=== PATIENT | female | born 1940 | race Caucasian/White ===

== ENCOUNTER → 2017-01-14 | Outpatient (CLI) | payer MEDICARE ==
--- NOTE | 2017-01-14 13:28 | XR ---
Lumbar spine HISTORY: Low back pain 3 views of the lumbar spine, no comparisons There is a mild spinal curvature. Multilevel spondylosis is present. Sclerosis present in the posteri or elements. Loss of disc height present at the intervertebral levels. There is anterolisthesis grade 1 L4-5. Vacuum phenomenon present at the intervertebral levels compatible with vacuum disc phenomeno n. Atherosclerotic vascular calcifications are present. Lumbar vertebral bodies show preserved height . Bone mineralization is reduced. Surgical clips in the right upper quadrant. IMPRESSION: Degenerative disc disease, facet arthropathy, osteopenia, scoliosis.
== END | disposition home or self-care (01) ==
LOC: RADXRMAIN 11:43
PROVIDERS: ATTEND Family Medicine
DX: M51.36 Other intervertebral disc degeneration, lumbar region (principal); M12.88 Other specific arthropathies, not elsewhere classified, other specified site; M85.80 Other specified disorders of bone density and structure, unspecified site; M41.9 Scoliosis, unspecified
CPT/HCPCS: 72100

== ENCOUNTER 2017-03-25 06:51 | Day surgery (SDC) | payer MEDICARE ==
[2017-03-24 08:41] VITALS: BMI 37.1
[~2017-03-25 06:51] MED LIST: LACTATED RINGERS 1,000 ML IV SCH
[2017-03-25 07:15] VITALS: TEMP 98
[2017-03-25 07:18] LABS: Glucose,Whole Blood 121 mg/dL (75-99)
[2017-03-25] MEDS ORDERED: PROPOFOL 10 MG/ML 20 ML VIAL IV ONE (07:45)
--- NOTE | 2017-03-25 08:25 | P.OP ---
Date of Procedure: 03/25/17 Preoperative Diagnosis: Prior cecal polyp underwent a colon resection Postoperative Diagnosis: Extensive diverticuli, internal hemorrhoids Procedure(s) Performed: Colonoscopy Implants: Anesthesia: MAC Surgeon: Karrie Hopkins Estimated Blood Loss (ml): 0 IV fluids (ml): 500 Pathology: none sent Condition: stable Disposition: PACU Indications for Procedure: Prior colon resection for cecal polyp Operative Findings: Extensive diverticuli, internal hemorrhoids Description of Procedure: The patient was taken to the endoscopy suite and following being placed in the left lateral decubitus position sedation was administered. A rectal examination was performed. Patient was noted to have good sphincter tone no masses. Colonoscope was passed through the anus into the rectum. Was passed into the sigmoid colon was noted to be extensive diverticuli. Was able to be passed to the splenic flexure through the transverse colon to the area of the anastomosis. No evidence of any recurrence was identified at the anastomosis. She had a prior cecal adenomatous polyp. No polypoid lesions of concern were identified. Proximally 6 minutes were taken to withdraw the scope from the area of the anastomosis to the rectum. No mucosal lesions of concern were identified. No mucosal lesions of concern were identified in the transverse colon or the left colon. Extensive diverticuli were noted in the sigmoid colon. The scope was brought down into the rectum where it was retroflexed. Internal hemorrhoids were identified. Impression/plan: 1. No polypoid lesions of concern 2. Internal hemorrhoids 3. Extensive diverticuli Plan: 1. Conservative management 2. Repeat scope in 5 years
--- NOTE | 2017-03-25 08:27 | P.DS ---
Providers Attending physician: Karrie Hopkins Primary care physician: Natacha Giraldo Plan - Discharge Summary New Discharge Prescriptions: No Action Folic Acid 0.4 mg PO HS Insulin Glargine [Lantus] 30 unit SQ HS Losartan [Cozaar] 50 mg PO QAM Gabapentin [Neurontin] 400 mg PO 0800,1200 Montelukast [Singulair] 10 mg PO DAILY Magnesium Oxide [Mag-Ox] 500 mg PO HS Fluticasone Propionate [Flonase] 2 spray EA NOSTRIL HS Ascorbic Acid [Vitamin C] 500 mg PO BID Ubidecarenone [Coq-10] 400 mg PO TID Acetaminophen [Tylenol] 325 mg PO Q4H PRN PRN Reason: Pain Cilostazol [Cilostazol] 100 mg PO BID Cranberry Conc/C/Bacill Coag [Cranberry Tablet] 3 tab PO QAM Cyanocobalamin [Vitamin B-12] 500 mcg PO QAM Vitamin E (Dl,Tocopheryl Acet) [Vitamin E] 400 mg PO DAILY Cetirizine HCl [Zyrtec] 10 mg PO DAILY L-Carnitine 500 mg PO TID Gabapentin [Neurontin] 800 mg PO W/SUPPER Super Enzyme 1 cap PO DAILY glipiZIDE [Glucotrol] 5 mg PO DAILY PRN PRN Reason: Blood Sugar - High Discharge Medication List Ascorbic Acid [Vitamin C] 500 mg PO BID 01/21/14 [History] Fluticasone Propionate [Flonase] 2 spray EA NOSTRIL HS 01/21/14 [History] Folic Acid 0.4 mg PO HS 01/21/14 [History] Gabapentin [Neurontin] 400 mg PO 0800,1200 01/21/14 [History] Insulin Glargine [Lantus] 30 unit SQ HS 01/21/14 [History] Losartan [Cozaar] 50 mg PO QAM 01/21/14 [History] Magnesium Oxide [Mag-Ox] 500 mg PO HS 01/21/14 [History] Montelukast [Singulair] 10 mg PO DAILY 01/21/14 [History] Ubidecarenone [Coq-10] 400 mg PO TID 01/21/14 [History] Acetaminophen [Tylenol] 325 mg PO Q4H PRN 03/24/15 [History] Cilostazol [Cilostazol] 100 mg PO BID 03/24/15 [History] Cranberry Conc/C/Bacill Coag [Cranberry Tablet] 3 tab PO QAM 03/24/15 [History] Cyanocobalamin [Vitamin B-12] 500 mcg PO QAM 03/24/15 [History] Cetirizine HCl [Zyrtec] 10 mg PO DAILY 01/12/16 [History] Vitamin E (Dl,Tocopheryl Acet) [Vitamin E] 400 mg PO DAILY 01/12/16 [History] L-Carnitine 500 mg PO TID 02/15/16 [History] Gabapentin [Neurontin] 800 mg PO W/SUPPER 03/24/17 [History] Super Enzyme 1 cap PO DAILY 03/24/17 [History] glipiZIDE [Glucotrol] 5 mg PO DAILY PRN 03/24/17 [History] Follow up Appointment(s)/Referral(s): Karrie Hopkins MD [STAFF PHYSICIAN] - As Needed Activity/Diet/Wound Care/Special Instructions: Diverticular diet Do not drive today Follow-up with Dr. Walker in 1 year unless patient has any concerns Discharge Disposition: HOME SELF-CARE
[2017-03-25 08:54] VITALS: BP 118/56; PULSE 59; RESP 20
== END 2017-03-25 09:07 | disposition home or self-care (01) ==
LOC: ORWHC2ENDO 06:51
PROVIDERS: ATTEND Surgery
DX: Z12.11 Encounter for screening for malignant neoplasm of colon (principal); Z86.010 Personal history of colon polyps; Z90.49 Acquired absence of other specified parts of digestive tract; K64.8 Other hemorrhoids; K57.30 Diverticulosis of large intestine without perforation or abscess without bleeding; I10 Essential (primary) hypertension; J45.909 Unspecified asthma, uncomplicated; M19.90 Unspecified osteoarthritis, unspecified site; N19 Unspecified kidney failure; E11.9 Type 2 diabetes mellitus without complications; Z79.4 Long term (current) use of insulin; Z79.84 Long term (current) use of oral hypoglycemic drugs; Z79.02 Long term (current) use of antithrombotics/antiplatelets; Z79.51 Long term (current) use of inhaled steroids; Z79.899 Other long term (current) drug therapy; Z88.1 Allergy status to other antibiotic agents
CPT/HCPCS: J2704; G0105

== ENCOUNTER 2018-04-03 12:21 | Emergency (ER) | payer MEDICARE ==
[2018-04-03 12:27] VITALS: RESP 18
--- NOTE | 2018-04-03 14:13 | ED ---
General Adult HPI - General Chief complaint: Abdominal Pain Stated complaint: Flank/Back Pain Time Seen by Provider: 04/03/18 12:42 Source: patient, RN notes reviewed Mode of arrival: wheelchair Limitations: no limitations - History of Present Illness Initial comments: 77-year-old female presents to the emergency department for a chief complaint of left lower flank pain 11 days. Patient states it comes and goes throughout the day. Patient states Tylenol and a heating pad takes away the pain within 30 minutes. Patient denies any abdominal pain. Patient denies any nausea or vomiting. No fevers or chills at home. Patient states make moving around may make it worse but she is not sure. Patient is scheduled for a knee replacement of the left kidney in one month and has been favoring the right leg considerably. She has been limping on the left leg and wonders if this could be causing the pain in her back. No history of kidney stones. patient denies any pain in the ER at this time. Patient has seen primary care provider for this who did some blood work and a urinalysis and believed it to be muscular. Patient states she has had chronic back pain in the past but that was more midline. Patient has no other complaints at this time including shortness of breath, chest pain, abdominal pain, nausea or vomiting, headache, or visual changes. - Related Data Home Medications Medication Instructions Recorded Confirmed Ascorbic Acid [Vitamin C] 500 mg PO BID 01/21/14 04/03/18 Fluticasone Propionate [Flonase] 2 spray EA NOSTRIL HS 01/21/14 04/03/18 Folic Acid 0.4 mg PO HS 01/21/14 04/03/18 Gabapentin [Neurontin] 400 mg PO BID@0800,1200 01/21/14 04/03/18 Insulin Glargine [Lantus] 29 unit SQ 01/21/14 04/03/18 Losartan [Cozaar] 50 mg PO QAM 01/21/14 04/03/18 Magnesium Oxide [Mag-Ox] 500 mg PO HS 01/21/14 04/03/18 Montelukast [Singulair] 10 mg PO DAILY 01/21/14 04/03/18 Ubidecarenone [Coq-10] 400 mg PO TID 01/21/14 04/03/18 Acetaminophen [Tylenol] 325 mg PO Q4H PRN 03/24/15 04/03/18 Cilostazol 100 mg PO BID 03/24/15 04/03/18 Cranberry Conc/C/Bacill Coag 3 tab PO QAM 03/24/15 04/03/18 [Cranberry Tablet] Cyanocobalamin [Vitamin B-12] 500 mcg PO QAM 03/24/15 04/03/18 Cetirizine HCl [Zyrtec] 10 mg PO DAILY 01/12/16 04/03/18 Vitamin E (Dl,Tocopheryl Acet) 400 mg PO DAILY 01/12/16 04/03/18 [Vitamin E] L-Carnitine 500 mg PO TID 02/15/16 04/03/18 Gabapentin [Neurontin] 800 mg PO W/SUPPER 03/24/17 04/03/18 Super Enzyme 1 cap PO DAILY 03/24/17 04/03/18 glipiZIDE [Glucotrol] 5 - 10 mg PO DAILY PRN 03/24/17 04/03/18 Previous Rx's Medication Instructions Recorded Lidocaine 5% Patch [Lidoderm 5% 1 patch TOPICAL DAILY #5 patch 04/03/18 Patch] Allergies Allergy/AdvReac Type Severity Reaction Status Date / Time clarithromycin [From Biaxin] Allergy Unknown Verified 04/03/18 13:25 perfume Allergy Unknown Verified 04/03/18 13:25 Review of Systems ROS Statement: Those systems with pertinent positive or pertinent negative responses have been documented in the HPI. ROS Other: All systems not noted in ROS Statement are negative. Past Medical History Past Medical History: Asthma, Diabetes Mellitus, Hyperlipidemia, Hypertension, Pneumonia, Skin Disorder Additional Past Medical History / Comment(s): hx VARICOSE VEINS, DIVERTICULITIS , PSORIASIS, DIABETIC NEUROPATHY, MITACHNDRIAL MYOPATHY, bowel resection for precancerous lesion History of Any Multi-Drug Resistant Organisms: None Reported Past Surgical History: Appendectomy, Bladder Surgery, Bowel Resection, Cholecystectomy, Hysterectomy, Tonsillectomy Additional Past Surgical History / Comment(s): DEVIATED SEPTUM, LEFT LEG VARICOSE LEG SX, MUSCLE BX LEFT LEG, howard cataracts, oral surgery Past Anesthesia/Blood Transfusion Reactions: No Reported Reaction Past Psychological History: No Psychological Hx Reported Smoking Status: Never smoker Past Alcohol Use History: None Reported Past Drug Use History: None Reported - Past Family History Father Family Medical History: Cancer Additional Family Medical History / Comment(s): COLON Mother Family Medical History: Cancer Additional Family Medical History / Comment(s): BREAST Sister(s) Additional Family Medical History / Comment(s): MEN1 TUMORS Brother(s) Additional Family Medical History / Comment(s): MEN1 TUMORS General Exam Limitations: no limitations General appearance: alert, in no apparent distress Head exam: Present: atraumatic, normocephalic, normal inspection Eye exam: Present: normal appearance ENT exam: Present: normal exam, mucous membranes moist Neck exam: Present: normal inspection, full ROM. Absent: tenderness, meningismus, lymphadenopathy Respiratory exam: Present: normal lung sounds bilaterally. Absent: respiratory distress, wheezes, rales, rhonchi, stridor Cardiovascular Exam: Present: regular rate, normal rhythm, normal heart sounds. Absent: systolic murmur, diastolic murmur, rubs, gallop, clicks Back exam: Present: full ROM (no pain with flexion/extension of the back. Mild pain with twisting to the left.), other (very mild tenderness above the left SI joint). Absent: CVA tenderness (R), CVA tenderness (L), vertebral tenderness ( no cervical, thoracic or lumbar spine tenderness) Psychiatric exam: Present: normal affect, normal mood Course Vital Signs 04/03/18 12:23 Temperature 97.9 F Pulse Rate 70 Respiratory 18 Rate Blood Pressure 147/81 O2 Sat by Pulse 97 Oximetry Medical Decision Making - Medical Decision Making 77-year-old female presents to the emergency department for a chief complaint of left lower flank pain 11 days. Pain is intermittent. Pain is relieved with Tylenol and a heating pad. Patient has no history of kidney stones. Patient is getting a knee replacement of the left knee next month due to "bone- on-bone arthritis." Patient has been favoring the right leg considerably and limping. On exam patient has mild tenderness to the left lower flank area. Pain is worsened with twisting to the left. No CVA tenderness. No abdominal tenderness.CBC and CMP are unremarkable. Urine negative for blood or infection. Patient likely has a muscle strain of the left low back. This is likely a she is favoring the right leg and limping. This is likely the cause of her pain. She'll be given a Lidoderm patch and can continue to take Motrin and Tylenol. She will follow up with primary care in 1-2 days. Patient aware she should return to the emergency Department if she has any worsening symptoms including severe pain or fever. On discharge patient's pain is at a 0. - Lab Data Result diagrams: 04/03/18 14:09 04/03/18 14:09 Lab Results 04/03/18 04/03/18 04/03/18 Range/Units 14:09 14:09 14:09 WBC 5.8 (3.8-10.6) k/uL RBC 4.39 (3.80-5.40) m/uL Hgb 14.4 (11.4-16.0) gm/dL Hct 42.3 (34.0-46.0) % MCV 96.4 (80.0-100.0) fL MCH 32.9 (25.0-35.0) pg MCHC 34.1 (31.0-37.0) g/dL RDW 12.7 (11.5-15.5) % Plt Count 227 (150-450) k/uL Neutrophils % 58 % Lymphocytes % 31 % Monocytes % 6 % Eosinophils % 3 % Basophils % 1 % Neutrophils # 3.3 (1.3-7.7) k/uL Lymphocytes # 1.8 (1.0-4.8) k/uL Monocytes # 0.3 (0-1.0) k/uL Eosinophils # 0.2 (0-0.7) k/uL Basophils # 0.0 (0-0.2) k/uL Sodium 139 (137-145) mmol/L Potassium 4.6 (3.5-5.1) mmol/L Chloride 102 (98-107) mmol/L Carbon Dioxide 27 (22-30) mmol/L Anion Gap 10 mmol/L BUN 16 (7-17) mg/dL Creatinine 0.96 (0.52-1.04) mg/dL Est GFR (CKD-EPI)AfAm 65 (>60 ml/min/1.73 sqM) Est GFR (CKD-EPI)NonAf 57 (>60 ml/min/1.73 sqM) Glucose 130 H (74-99) mg/dL Calcium 9.7 (8.4-10.2) mg/dL Total Bilirubin 0.6 (0.2-1.3) mg/dL AST 40 H (14-36) U/L ALT 42 (9-52) U/L Alkaline Phosphatase 67 (38-126) U/L Total Protein 7.4 (6.3-8.2) g/dL Albumin 4.5 (3.5-5.0) g/dL Urine Color Colorless Urine Appearance Clear (Clear) Urine pH 6.5 (5.0-8.0) Ur Specific [place] 1.004 (1.001-1.035) Urine Protein Negative (Negative) Urine Glucose (UA) Negative (Negative) Urine Ketones Negative (Negative) Urine Blood Negative (Negative) Urine Nitrite Negative (Negative) Urine Bilirubin Negative (Negative) Urine Urobilinogen <2.0 (<2.0) mg/dL Ur Leukocyte Esterase Negative (Negative) Disposition Clinical Impression: Back pain, Muscle strain Disposition: HOME SELF-CARE Condition: Good Instructions: Back Pain (ED), Lower Back Exercises (ED) Additional Instructions: Please take Motrin or Tylenol for pain. You may use 1 lidocaine patch for up to 12 hours every 24 hours. Return to the emergency department if you have any worsening symptoms including fever or severe pain. Otherwise follow-up with primary care in 1-2 days. Prescriptions: Lidocaine 5% Patch [Lidoderm 5% Patch] 1 patch TOPICAL DAILY #5 patch Is patient prescribed a controlled substance at d/c from ED?: No Referrals: Natacha Giraldo DO [Primary Care Provider] - 1-2 days Time of Disposition: 15:26
[2018-04-03 14:21] LABS: Basophils % (A) 1 %; Eosinophils # (A) 0.2 k/uL (0-0.7); Eosinophils % (A) 3 %; HCT 42.3 % (34.0-46.0); HGB 14.4 gm/dL (11.4-16.0); Lymphocytes # (A) 1.8 k/uL (1.0-4.8); Lymphocytes % (A) 31 %; MCH 32.9 pg (25.0-35.0); MCHC 34.1 g/dL (31.0-37.0); MCV 96.4 fL (80.0-100.0); Mean Platelet Volume 7.3; Monocytes # (A) 0.3 k/uL (0-1.0); Monocytes % (A) 6 %; Neutrophils # (A) 3.3 k/uL (1.3-7.7); Neutrophils % (A) 58 %; Platelet Count 227 k/uL (150-450); RBC 4.39 m/uL (3.80-5.40); RDW 12.7 % (11.5-15.5); WBC 5.8 k/uL (3.8-10.6)
[2018-04-03 14:41] LABS: Appearance,Urine Clear (Clear); Bilirubin,Urine Negative (Negative); Blood,Urine Negative (Negative); Color,Urine Colorless; Glucose,Urine (UA) Negative (Negative); Ketones,Urine Negative (Negative); Leukocyte Esterase,Urine Negative (Negative); Nitrite,Urine Negative (Negative); PH, Urine 6.5 (5.0-8.0); Protein,Urine Negative (Negative); Specific Gravity,Urine 1.004 (1.001-1.035); Urobilinogen,Urine <2.0 mg/dL (<2.0)
[2018-04-03 15:08] LABS: Albumin 4.5 g/dL (3.5-5.0); Calcium 9.7 mg/dL (8.4-10.2); Potassium 4.6 mmol/L (3.5-5.1); Total Bilirubin 0.6 mg/dL (0.2-1.3); Total Protein 7.4 g/dL (6.3-8.2)
[2018-04-03 17:32] VITALS: BP 143/65; PULSE 88; TEMP 98.2
== END 2018-04-03 16:04 | disposition home or self-care (01) ==
LOC: EC 12:21
DX: S39.012A Strain of muscle, fascia and tendon of lower back, initial encounter (principal); J45.909 Unspecified asthma, uncomplicated; I10 Essential (primary) hypertension; E78.5 Hyperlipidemia, unspecified; E11.40 Type 2 diabetes mellitus with diabetic neuropathy, unspecified; Z79.4 Long term (current) use of insulin; Z79.899 Other long term (current) drug therapy; Z88.1 Allergy status to other antibiotic agents; Z91.048 Other nonmedicinal substance allergy status; Z87.01 Personal history of pneumonia (recurrent); Z87.19 Personal history of other diseases of the digestive system; Z90.49 Acquired absence of other specified parts of digestive tract
CPT/HCPCS: 36415; 80053; 81003; 85025; 87086; 99284

== ENCOUNTER → 2018-04-03 | Outpatient (CLI) | payer MEDICARE ==
[2018-04-03 10:48] LABS: Basophils % (A) 1 %; Eosinophils # (A) 0.2 k/uL (0-0.7); Eosinophils % (A) 3 %; HCT 42.7 % (34.0-46.0); HGB 14.2 gm/dL (11.4-16.0); Lymphocytes # (A) 1.5 k/uL (1.0-4.8); Lymphocytes % (A) 25 %; MCH 32.5 pg (25.0-35.0); MCHC 33.2 g/dL (31.0-37.0); Mean Platelet Volume 7.4; Monocytes # (A) 0.4 k/uL (0-1.0); Monocytes % (A) 6 %; Neutrophils # (A) 3.7 k/uL (1.3-7.7); Neutrophils % (A) 63 %; Platelet Count 239 k/uL (150-450); RBC 4.36 m/uL (3.80-5.40); RDW 12.8 % (11.5-15.5); WBC 5.9 k/uL (3.8-10.6)
[2018-04-03 10:50] LABS: INR 1.1 (<1.2); Prothrombin Time 10.5 sec (9.0-12.0)
[2018-04-03 10:56] LABS: Potassium 4.7 mmol/L (3.5-5.1)
== END | disposition home or self-care (01) ==
LOC: LABPAT 10:09
PROVIDERS: ATTEND Orthopaedic Surgery
DX: Z01.812 Encounter for preprocedural laboratory examination (principal); M17.12 Unilateral primary osteoarthritis, left knee; Z01.818 Encounter for other preprocedural examination
CPT/HCPCS: 36415; 80051; 85025; 85610; 87070; 93005

== ENCOUNTER 2018-04-27 07:40 | Inpatient (IN) | payer MEDICARE ==
[2018-04-09 09:23] VITALS: BMI 35.0
--- NOTE | 2018-04-26 13:44 | HP ---
HISTORY AND PHYSICAL DATE OF SERVICE: Surgery scheduled for 04/27/2018. HISTORY: Celia Willams is a 77-year-old patient seen with symptomatic left knee osteoarthritis. Treatment options were discussed. She elected to proceed with left total knee arthroplasty. Consent was obtained. Clearance was provided by Dr. Giraldo. PAST MEDICAL HISTORY: Asthma, [id number] diabetes, hypertension. PAST SURGICAL HISTORY: Appendectomy, cholecystectomy, hysterectomy, colon resection surgery. MEDICATIONS: Losartan, Singulair, gabapentin, Flonase. SOCIAL HISTORY: Patient denies tobacco use. PHYSICAL EXAMINATION: Evaluation of the left knee, range of motion is -4/5 to 115 degrees. Medial joint line tenderness. Positive medial Jose's. Ligaments stable. Hip rotation with minimal pain. Distal neurovascular exam is intact. RADIOGRAPHS: Left knee radiographs revealed severe medial and moderate patellofemoral compartment osteoarthritis. IMPRESSION: 1. Left knee osteoarthritis. 2. Insulin-dependent diabetes. 3. Hypertension. PLAN: Left total knee arthroplasty. MMODL / IJN: [id number] /
[~2018-04-27 07:40] MED LIST changes: +ACETAMINOPHEN TAB 500 MG TAB PO ONE; +HYDROmorphone 0.5 MG/0.5 ML SYRINGE IVP PRN; -LACTATED RINGERS 1,000 ML IV SCH; +LIDOCAINE 1% 20 ML VIAL (10MG/ML) FOR IV START INTRADERMA PRN; +MELOXICAM 7.5 MG TAB PO ONE; +ONDANSETRON 4 MG/2 ML VIAL IVP ONE; +TRANEXAMIC ACID 1,000 MG in SODIUM CHLORIDE 0.9% 50 ML IVPB ONE; +ceFAZolin IN SWFI 2 GM/20 ML SYRINGE IVP ONE
[2018-04-27 10:42] VITALS: RESP 16
[2018-04-27] MEDS: LACTATED RINGERS 1,000 ML IV SCH (10:49)
[2018-04-27] MEDS ORDERED: MIDAZOLAM 2 MG/2 ML VIAL ONE (10:50)
[2018-04-27 10:52] LABS: Glucose,Whole Blood 105 mg/dL (75-99)
[2018-04-27] MEDS ORDERED: ROPIVACAINE 1,100 MG, SODIUM CHLORIDE 0.9% 330 ML MISCELLANE PRN ×2 (11:42)
--- NOTE | 2018-04-27 11:45 | P.ONQ ---
Anesthesiology Proc Note - PNB - Peripheral Nerve Block Performed Left Adductor Canal Procedure Start Time: 11:10 Procedure Stop Time: 11:26 Indication: Acute Post-Operative Pain, Requested by physician (Dr Del Valle) Sedation Type: Sedate with meaningful contact maintained Preparation: Sterile Dressing Position: Supine Catheter: Indwelling Needle Types: Other (see comment) (Shea) Needle Size: 50mm (2") Needle Gauge: 21 Technique: Ultrasound Injectate: 0.5% Ropivacaine (see comment for volume) (22cc) Blood Aspirated: No Pain Paresthesia on Injection Noted: No Resistance on Injection: Normal Events: Uneventful and Well Tolerated
[2018-04-27] MEDS ORDERED: ROPIVACAINE 246.25 MG, EPINEPHrine 0.5 MG, KETOROLAC 30 MG, cloNIDine HCL/PF 80 MCG, WA... MISCELLANE ONE ×5 (12:02)
[2018-04-27] MEDS ORDERED: LACTATED RINGERS 1,000 ML IV ONE (13:20)
[2018-04-27] MEDS ORDERED: ceFAZolin 3,000 MG in SODIUM CHLORIDE 0.9% IRRIGATIO 3,000 ML IRRIGATION ONE (13:41)
--- NOTE | 2018-04-27 14:49 | P.OP ---
Date of Procedure: 04/27/18 Preoperative Diagnosis: Left knee osteoarthritis Postoperative Diagnosis: Left knee osteoarthritis Procedure(s) Performed: Left total knee arthroplasty Implants: 1. Depuy attune size 6 narrow left cruciate retaining cemented femur 2. Depuy attune size 6 fixed bearing cemented tibial baseplate 3. Depuy attune size 6 5mm fixed bearing cruciate retaining polyethylene tibial insert 4. Depuy attune medialized all polyethylene cemented patella Anesthesia: regional (Adductor canal block), local, spinal Surgeon: Link Del Valle Director Media #1: Guy Almanza Estimated Blood Loss (ml): 50 Pathology: other (Bone) Condition: stable Disposition: PACU Indications for Procedure: 77-year-old patient seen with symptomatic left knee osteoarthritis. After treatment options were discussed, she elected to proceed with total knee arthroplasty. Operative Findings: see description of procedure Description of Procedure: Patient was taken to the operative suite after having an adductor canal catheter placed by the department of anesthesia. Patient underwent a spinal anesthetic by the department of anesthesia. Patient was given preoperative IV intake antibiotics and TXA. A well-padded tourniquet was placed about the left lower extremity. The lower extremity was then prepped and draped in the normal sterile orthopedic fashion. The extremity was elevated, a tourniquet was insufflated to 300. A standard anterior incision was made sharply through skin. Dissection was taken down through the subcutaneous soft tissues down to the extensor mechanism. A medial arthrotomy was performed, patella was everted and knee was flexed. There was advanced osteoarthritis noted. I introduced my distal intramedullary femoral drill. I then introduced the distal femoral cutting jig. Josse TRIPP secured the cutting jig with 2 pins. I held retractors in position while Josse TRIPP performed the distal femoral resection through the guide area we now removed her distal femoral cutting guide. We now placed our 4-in-1 femoral cutting block and positioned and it was secured with 2 pins by Josse TRIPP while I held the block in position. The distal femoral finishing was now completed. A proximal tibial cutting guide was positioned. I held the guide in the appropriate position with both hands well Josse TRIPP inserted stabilizing pins into the guide. Proximal tibial cut was made. We now placed a trial femoral component into position, along with an appropriate size tibial tray and insert. We now took the knee through range of motion and had full extension good flexion and good overall soft tissue balance noted. The patella was everted and stabilized with 2 towel clips held by Josse TRIPP while I performed a flush with patellar quad tendon utilizing a fresh sawblade. We templated the patella, appropriate drill holes were made. An appropriate trial patella was positioned, knee was taken through full range of motion with the patella tracking very nicely. The trial patella was removed. Drill holes were made through the femoral component. All trial components were removed after marking off the appropriate rotation of the tibia. Retractors were now positioned along the proximal tibia. An appropriate keel punch was made with the appropriate size tibial guide by myself while Josse TRIPP assisted by holding retractors. At this point appropriate size implants were chosen and opened. The joint was irrigated copiously with pulse lavage mechanical irrigation. The posterior capsule was infiltrated with local analgesic. The wound was irrigated with pulse lavage mechanical irrigation. We mixed antibiotic methylmethacrylate. We placed the knee into flexion. We placed multiple retractors assisted by Josse TRIPP to expose the proximal tibia. Once the methyl methacrylate was ready, the tibial component was cemented into place removing any excess methylmethacrylate which was performed by both myself and Josse TRIPP. The femoral component was cemented into place removing the removing any excess methylmethacrylate performed by both myself and Josse TRIPP. We then inserted the appropriate size polyethylene tibial insert. We made sure that it was locked into position. We took the knee into full extension, and then back in a flexion making sure we had removed any excess methylmethacrylate. The patellar component was then cemented down and secured with clamp. Excess methylmethacrylate removed. We kept the knee in full extension, patellar clamp in position until methylmethacrylate had hardened. Once it had hardened the patellar clamp was removed. The knee was taken through full range of motion. The patella tracked nicely. There was good soft tissue balancing. The tourniquet was now released. Additional hemostasis was achieved via electrocautery. A second gram of TXA was given. The wound again was irrigated with pulse lavage mechanical irrigation. The superficial soft tissues were infiltrated local analgesic. The extensor mechanism was repaired with Vicryl. We checked the repair with range of motion and it was stable. The subcutaneous soft tissues were repaired with Vicryl in layers. The skin was approximated with pernio/Dermabond. Sterile dressings were applied followed by loose web roll and Joselito bandage. The patient was transferred to a bed, and taken to recovery in stable and satisfactory condition. Josse TRIPP assisted with this complex procedure.
[2018-04-27] MEDS ORDERED: ONDANSETRON 4 MG/2 ML VIAL IVP PRN (14:58)
[2018-04-27] MEDS ORDERED: hydrOXYzine PAMOATE 25 MG CAP PO PRN (14:58)
[2018-04-27] MEDS ORDERED: NALOXONE 0.4 MG/ML 1 ML VIAL IV PRN (14:58)
[2018-04-27] MEDS ORDERED: HYDROmorphone 1 MG/ML 1 ML SYRINGE IVP PRN ×3 (14:58)
--- NOTE | 2018-04-27 15:27 | XR ---
EXAMINATION TYPE: XR knee limited LT DATE OF EXAM: 04/27/2018 COMPARISON: NONE TECHNIQUE: Two views submitted HISTORY: Post op FINDINGS: There is a prosthetic knee in near anatomic alignment. There is soft tissue edema and emphysema. So ft tissue calcification noted. IMPRESSION: 1. Postoperative change. Appears in near-anatomic alignment
[2018-04-27] MEDS ORDERED: DEXTROSE 50%-WATER 50 ML SYRINGE IVP ONE (15:47)
[2018-04-27 15:54] LABS: Glucose,Whole Blood 54 mg/dL (75-99)
[2018-04-27 16:06] LABS: Glucose,Whole Blood 97 mg/dL (75-99)
[2018-04-27] MEDS: SODIUM CHLORIDE 0.9% 1,000 ML IV SCH (16:21)
[2018-04-27 17:17] LABS: Glucose,Whole Blood 100 mg/dL (75-99)
[2018-04-27] MEDS: ceFAZolin IN SWFI 2 GM/20 ML SYRINGE IVP SCH ×2 (17:29→23:50)
[2018-04-27] MEDS: traMADol 50 MG TAB PO SCH ×2 (17:30→21:38)
[2018-04-27] MEDS ORDERED: INSULIN DETEMIR 100 UNIT/ML 10 ML VIAL SQ SCH (21:00)
[2018-04-27 21:03] LABS: Glucose,Whole Blood 243 mg/dL (75-99)
[2018-04-27] MEDS: FLUTICASONE 50MCG/SPRAY NASAL 16GM EA NOSTRIL SCH (21:35)
[2018-04-27] MEDS: GABAPENTIN 400 MG CAP PO SCH (21:35)
[2018-04-27] MEDS: CILOSTAZOL 100 MG TAB PO SCH (21:35)
[2018-04-27] MEDS: INSULIN ASPART 100 UNIT/ML 1 ML 10 ML VIAL SQ SCH (21:36)
[2018-04-27] MEDS: SENNOSIDES-DOCUSATE SODIUM 1 EACH TAB PO SCH (21:37)
[2018-04-27] MEDS: INSULIN DETEMIR 100 UNIT/ML 10 ML VIAL SQ SCH (21:37)
[2018-04-27] MEDS: MONTELUKAST 10 MG TAB PO SCH (21:37)
[2018-04-27] MEDS: HYDROcodone/APAP 5-325MG 1 EACH TAB PO PRN (23:50)
[2018-04-28 00:26] LABS: Glucose,Whole Blood 114 mg/dL (75-99)
[2018-04-28] MEDS ORDERED: SODIUM CHLORIDE 0.9% 500 ML IV ONE ×2 (02:30→12:04)
--- NOTE | 2018-04-28 06:16 | P.PN ---
Progress Note - Text Progress Note Date: 04/28/18 77-year-old female status post left total knee arthroplasty postop day #1 with adductor canal catheter. Patient doing well with no complaints. VAS is a 4/ 10. Patient was ambulating last night. Plan is to continue with On-Q pump.
[2018-04-28] MEDS: LACTATED RINGERS 1,000 ML IV SCH (06:37)
[2018-04-28] MEDS: HYDROcodone/APAP 5-325MG 1 EACH TAB PO PRN ×4 (06:55→22:00)
[2018-04-28] MEDS: LOSARTAN 50 MG TAB PO SCH (07:08)
[2018-04-28 07:13] LABS: Glucose,Whole Blood 67 mg/dL (75-99)
[2018-04-28] MEDS: INSULIN ASPART 100 UNIT/ML 1 ML 10 ML VIAL SQ SCH ×4 (07:18→21:01)
[2018-04-28 07:25] LABS: Basophils % (A) 0 %; Eosinophils # (A) 0.2 k/uL (0-0.7); Eosinophils % (A) 2 %; HCT 34.9 % (34.0-46.0); HGB 11.6 gm/dL (11.4-16.0); Lymphocytes # (A) 1.4 k/uL (1.0-4.8); Lymphocytes % (A) 17 %; MCH 32.4 pg (25.0-35.0); MCHC 33.2 g/dL (31.0-37.0); MCV 97.4 fL (80.0-100.0); Mean Platelet Volume 7.9; Monocytes # (A) 0.4 k/uL (0-1.0); Monocytes % (A) 5 %; Neutrophils # (A) 6.3 k/uL (1.3-7.7); Neutrophils % (A) 75 %; Platelet Count 213 k/uL (150-450); RBC 3.58 m/uL (3.80-5.40); RDW 12.4 % (11.5-15.5); WBC 8.4 k/uL (3.8-10.6)
[2018-04-28 07:33] LABS: Glucose,Whole Blood 86 mg/dL (75-99)
[2018-04-28 07:43] LABS: Calcium 8.6 mg/dL (8.4-10.2); Potassium 5.2 mmol/L (3.5-5.1)
[2018-04-28] MEDS: CILOSTAZOL 100 MG TAB PO SCH (08:56)
[2018-04-28] MEDS: GABAPENTIN 400 MG CAP PO SCH ×3 (08:57→21:01)
[2018-04-28] MEDS: ENOXAPARIN 30 MG/0.3 ML SYRINGE SQ SCH ×2 (08:57→21:01)
[2018-04-28] MEDS: MELOXICAM 7.5 MG TAB PO SCH (08:57)
[2018-04-28] MEDS: LORATADINE 10 MG TAB PO SCH (08:58)
[2018-04-28] MEDS: traMADol 50 MG TAB PO SCH ×4 (08:58→21:00)
[2018-04-28 11:53] LABS: Glucose,Whole Blood 137 mg/dL (75-99)
--- NOTE | 2018-04-28 12:09 | P.PN ---
Subjective Progress Note Date: 04/28/18 Principal diagnosis: Status post left total knee arthroplasty Patient seen today resting in her hospital bed, she has family present at bedside. She states that she has ambulated with therapy. She is urinating on her own. She denies any headaches, lightheadedness, chest pain or shortness of breath Objective - Vital Signs Vital signs: Vital Signs Temp 97.5 F L 04/28/18 07:03 Pulse 63 04/28/18 07:03 Resp 16 04/28/18 07:03 BP 95/60 04/28/18 07:03 Pulse Ox 96 04/28/18 07:03 Intake & Output 04/27/18 04/28/18 04/28/18 18:59 06:59 18:59 Intake Total 2050 600 1400 Output Total 50 350 Balance 2000 250 1400 Weight 98.43 kg 98.43 kg Intake: IV 2050 Intake, IV Titration 400 1100 Amount Sodium Chloride 0.9% 1, 400 600 000 ml @ 50 mls/hr IV . Q20H [facility] Rx#:[id number] Sodium Chloride 0.9% 500 500 ml @ 999 mls/hr IV .Q31M ONE Rx#:[id number] Oral 200 300 Output: Urine 350 Estimated Blood Loss 50 Other: Voiding Method Toilet # Voids 1 2 - Exam Left lower extremity: Incision is clean, dry, and intact. The prineo tape is in good condition. There is minimal soft tissue swelling and ecchymosis surrounding the medial and lateral aspects of the incision. Calf is soft, no tenderness with palpation. Plantar flexion, dorsiflexion, EHL, FHL are intact. Sensory exam to light touch throughout the extremity is intact, dorsal pedis pulses 2+. - Labs CBC & Chem 7: 04/28/18 06:52 04/28/18 06:52 Labs: Abnormal Lab Results - Last 24 Hours (Table) 04/27/18 04/27/18 04/27/18 Range/Units 15:44 17:16 21:02 RBC (3.80-5.40) m/uL Potassium (3.5-5.1) mmol/L BUN (7-17) mg/dL Glucose (74-99) mg/dL POC Glucose (mg/dL) 54 L 100 H 243 H (75-99) mg/dL 08/04/28/18 04/28/18 Range/Units 00:25 06:52 06:52 RBC 3.58 L (3.80-5.40) m/uL Potassium 5.2 H (3.5-5.1) mmol/L BUN 18 H (7-17) mg/dL Glucose 60 L (74-99) mg/dL POC Glucose (mg/dL) 114 H (75-99) mg/dL 04/28/18 04/28/18 Range/Units 07:09 11:51 RBC (3.80-5.40) m/uL Potassium (3.5-5.1) mmol/L BUN (7-17) mg/dL Glucose (74-99) mg/dL POC Glucose (mg/dL) 67 L 137 H (75-99) mg/dL Assessment and Plan Plan: Assessment: Post op day 1 status post left total knee arthroplasty Plan: Pain control, continue on oral medication GI and DVT prophylaxis, continue current medication Continue work with physical therapy and use of CPM Wound care instructions were discussed Medical recommendations Discharge planning: Patient will be likely discharged home tomorrow
[2018-04-28 12:15] LABS: Hemoglobin A1C 5.6 % (4.0-6.0)
[2018-04-28] MEDS: CYANOCOBALAMIN 500 MCG TAB PO SCH (14:33)
[2018-04-28] MEDS: SODIUM CHLORIDE 0.9% 1,000 ML IV SCH (14:34)
[2018-04-28] MEDS: MULTIVITAMINS, THERA 1 EACH TAB PO SCH (16:00)
[2018-04-28 16:47] LABS: Glucose,Whole Blood 138 mg/dL (75-99)
[2018-04-28 20:01] LABS: Glucose,Whole Blood 251 mg/dL (75-99)
[2018-04-28] MEDS: FLUTICASONE 50MCG/SPRAY NASAL 16GM EA NOSTRIL SCH (21:01)
[2018-04-28] MEDS: INSULIN DETEMIR 100 UNIT/ML 10 ML VIAL SQ SCH (21:01)
[2018-04-28] MEDS: SENNOSIDES-DOCUSATE SODIUM 1 EACH TAB PO SCH (21:01)
[2018-04-28] MEDS: MONTELUKAST 10 MG TAB PO SCH (21:02)
--- NOTE | 2018-04-28 23:54 | P.CONS ---
History of Present Illness - Reason for Consult Consult date: 04/28/18 Medical management of hypertension and other medical problems - Chief Complaint Left total knee arthroplasty elective surgery - History of Present Illness Patient is a 77-year-old female with a known history of hypertension, hyperlipidemia and diabetes type 2 as well as osteoarthritis was admitted to the hospital for left total knee arthroplasty. Patient tolerated the procedure very well. Currently patient is well controlled. Denied any complaints of chest pain or shortness of breath. No nausea vomiting or abdominal pain. No headache or dizziness or shortness of breath. Patient was found to have SBP around 90 this morning and was given 500 mL fluid bolus. Currently patient is able to participate in physical therapy. No fever no chills. No nausea vomiting or abdominal pain. Review of Systems Constitutional: Patient denies any fever or chills . No generalized weakness or weight loss. Abdomen: Patient denied nausea vomiting and diarrhea and abdominal pain. Cardiovascular: Patient denies any chest pain or short of breath no palpitations. Respiratory: patient denied any cough is from production. No shortness of breath Neurologic: Patient denied any numbness or tingling headache. Musculoskeletal: Patient denies any complaints of joint swelling or deformity. Skin: Negative Psychiatric: Negative Endocrine: No heat or cold intolerance. No recent weight gain. Genitourinary: No dysuria or hematuria. All other 14 point ROS negative except the above Past Medical History Past Medical History: Asthma, Diabetes Mellitus, Hyperlipidemia, Hypertension, Osteoarthritis (OA), Pneumonia, Skin Disorder Additional Past Medical History / Comment(s): hx VARICOSE VEINS, DIVERTICULITIS , PSORIASIS, DIABETIC NEUROPATHY, MITACHONDRIAL MYOPATHY, bowel resection for precancerous lesion,steroid injection February 2018 History of Any Multi-Drug Resistant Organisms: None Reported Past Surgical History: Appendectomy, Bladder Surgery, Bowel Resection, Cholecystectomy, Hysterectomy, Tonsillectomy Additional Past Surgical History / Comment(s): DEVIATED SEPTUM, LEFT LEG VARICOSE LEG SX, MUSCLE BX LEFT LEG x2, howard cataracts, oral surgery-dental implants howard lower,bladder susp Past Anesthesia/Blood Transfusion Reactions: No Reported Reaction Additional Past Anesthesia/Blood Transfusion Reaction / Comm: no hx blood transfusion Smoking Status: Never smoker - Past Family History Father Family Medical History: Cancer Additional Family Medical History / Comment(s): COLON Mother Family Medical History: Cancer Additional Family Medical History / Comment(s): BREAST Sister(s) Additional Family Medical History / Comment(s): MEN1 TUMORS Brother(s) Additional Family Medical History / Comment(s): MEN1 TUMORS Medications and Allergies Home Medications Medication Instructions Recorded Confirmed Type Fluticasone Propionate [Flonase] 2 spray EA NOSTRIL HS 01/21/14 04/27/18 History Folic Acid 0.4 mg PO HS 01/21/14 04/27/18 History Gabapentin [Neurontin] 400 mg PO BID@0800,1200 01/21/14 04/27/18 History Insulin Glargine [Lantus] 28 unit SQ HS 01/21/14 04/27/18 History Losartan [Cozaar] 50 mg PO QAM 01/21/14 04/27/18 History Magnesium Oxide [Mag-Ox] 500 mg PO HS 01/21/14 04/27/18 History Montelukast [Singulair] 10 mg PO HS 01/21/14 04/27/18 History Ubidecarenone [Coq-10] 400 mg PO TID 01/21/14 04/27/18 History Acetaminophen [Tylenol] 650 mg PO 5XD PRN 03/24/15 04/27/18 History Cilostazol 100 mg PO BID 03/24/15 04/27/18 History Cranberry Conc/C/Bacill Coag 4 tab PO QAM 03/24/15 04/27/18 History [Cranberry Tablet] Cyanocobalamin [Vitamin B-12] 500 mcg PO QAM 03/24/15 04/27/18 History Cetirizine HCl [Zyrtec] 10 mg PO DAILY 01/12/16 04/27/18 History Vitamin E (Dl,Tocopheryl Acet) 400 mg PO DAILY 01/12/16 04/27/18 History [Vitamin E] L-Carnitine 500 mg PO TID 02/15/16 04/27/18 History Gabapentin [Neurontin] 800 mg PO HS 03/24/17 04/27/18 History Super Enzyme 1 cap PO DAILY 03/24/17 04/27/18 History Ana C 500 mg PO BID@0800,1200 18 04/27/18 History Ibuprofen 400 mg PO Q6H PRN 04/09/18 04/27/18 History Pyridoxine HCl (Vitamin B6) 100 mg PO DAILY 04/09/18 04/27/18 History [Vitamin B-6] Allergies Allergy/AdvReac Type Severity Reaction Status Date / Time clarithromycin [From Biaxin] Allergy Unknown Verified 04/27/18 16:17 perfume AdvReac headache Verified 04/27/18 16:17 Physical Exam Vitals: Vital Signs Temp Pulse Pulse Resp BP Pulse Ox 04/28/18 07:03 97.5 F L 63 16 95/60 96 04/28/18 02:15 98.1 F 64 16 94/59 92 L 04/28/18 00:10 16 04/27/18 20:45 63 16 04/27/18 19:00 97.8 F 63 16 130/59 95 04/27/18 18:00 61 16 145/73 95 04/27/18 17:45 53 L 16 142/83 92 L 04/27/18 17:30 66 16 151/83 95 04/27/18 17:15 54 L 16 136/70 98 04/27/18 17:00 56 L 16 145/78 93 L 04/27/18 16:45 54 L 16 134/73 96 04/27/18 16:30 58 L 16 125/68 95 04/27/18 16:15 97.9 F 57 L 16 115/70 98 04/27/18 16:03 54 L 16 121/58 97 04/27/18 15:49 51 L 16 107/52 98 04/27/18 15:34 46 L 16 103/54 98 04/27/18 15:19 46 L 16 99/51 97 04/27/18 15:04 97.6 F 51 L 16 100/51 94 L Intake and Output 04/27/18 04/28/18 04/28/18 22:59 06:59 14:59 Intake Total 1150 1400 Output Total 350 Balance 800 1400 Intake: IV 550 Intake, IV Titration 400 1100 Amount Sodium Chloride 0.9% 1, 400 600 000 ml @ 50 mls/hr IV . Q20H [facility] Rx#:[id number] Sodium Chloride 0.9% 500 500 ml @ 999 mls/hr IV .Q31M [facility] Rx#:[id number] Oral 200 300 Output: Urine 350 Other: Voiding Method Toilet # Voids 1 2 Weight 98.43 kg 98.43 kg PHYSICAL EXAMINATION: Patient is lying in the bed comfortably, no acute distress, awake alert and oriented.. HEENT: Normocephalic. Neck is supple. Pupils reactive. Nostrils clear. Oral cavity is moist. Ears reveal no drainage. Neck reveals no JVD, carotid bruits, or thyromegaly. CHEST EXAMINATION: Trachea is central. Symmetrical expansion. Lung siu clear to auscultation and percussion. Bibasilar diminished air entry. CARDIAC: Normal S1, S2 with no gallops. No murmurs ABDOMEN: Soft. Bowel sounds normal. No organomegaly. No abdominal bruits. Extremities: reveal no edema. No clubbing or cyanosis Neurologically awake, alert, oriented x3 with well-coordinated movements. No focal deficits noted Skin: No rash or skin lesions. Psychiatric: Coperative. Nonsuicidal Musculoskeletal: No joint swelling or deformity. Left knee surgical site intact. Mild swelling of the knee. Decreased range of motion.. Results CBC & Chem 7: 04/28/18 06:52 04/28/18 06:52 Labs: Abnormal Lab Results - Last 24 Hours (Table) 04/27/18 04/27/18 04/27/18 Range/Units 15:44 17:16 21:02 RBC (3.80-5.40) m/uL Potassium (3.5-5.1) mmol/L BUN (7-17) mg/dL Glucose (74-99) mg/dL POC Glucose (mg/dL) 54 L 100 H 243 H (75-99) mg/dL 04/28/18 04/28/18 04/28/18 Range/Units 00:25 06:52 06:52 RBC 3.58 L (3.80-5.40) m/uL Potassium 5.2 H (3.5-5.1) mmol/L BUN 18 H (7-17) mg/dL Glucose 60 L (74-99) mg/dL POC Glucose (mg/dL) 114 H (75-99) mg/dL 04/28/18 Range/Units 07:09 RBC (3.80-5.40) m/uL Potassium (3.5-5.1) mmol/L BUN (7-17) mg/dL Glucose (74-99) mg/dL POC Glucose (mg/dL) 67 L (75-99) mg/dL Assessment and Plan Assessment: Left knee osteoarthritis status post total arthroplasty postoperative day 1 Hypotension likely due to anesthesia and pain medications. Improving now Hypertension controlled Diabetes type 2 insulin-dependent Diabetic peripheral neuropathy Peripheral vascular disease and varicose veins Osteoarthritis Obesity with BMI 35.0. Psoriatic his Mitochondrial myopathy DVT prophylaxis Plan: Patient will be continued on IV hydration and monitor for fluid overload. Encourage ambulation and incentive spirometry. We will hold blood pressure medications and start back was the blood pressure improves. Continue the pain medications and DVT prophylaxis. Further recommendations based on the clinical course. We will continue to follow closely. Thank you for your consult. Time with Patient: Greater than 30
[2018-04-29 00:58] LABS: Glucose,Whole Blood 103 mg/dL (75-99)
[2018-04-29] MEDS: HYDROcodone/APAP 5-325MG 1 EACH TAB PO PRN ×3 (05:17→16:23)
[2018-04-29] MEDS: LACTATED RINGERS 1,000 ML IV SCH (05:45)
[2018-04-29 07:21] LABS: Glucose,Whole Blood 91 mg/dL (75-99)
[2018-04-29 09:21] VITALS: BP 149/82; PULSE 73; TEMP 98.5
[2018-04-29] MEDS: traMADol 50 MG TAB PO SCH ×2 (09:36→16:09)
[2018-04-29] MEDS: GABAPENTIN 400 MG CAP PO SCH ×2 (09:37→13:30)
[2018-04-29] MEDS: LOSARTAN 50 MG TAB PO SCH (09:37)
[2018-04-29] MEDS: LORATADINE 10 MG TAB PO SCH (09:38)
[2018-04-29] MEDS: MELOXICAM 7.5 MG TAB PO SCH (09:38)
[2018-04-29] MEDS: MULTIVITAMINS, THERA 1 EACH TAB PO SCH (09:38)
[2018-04-29] MEDS: ENOXAPARIN 30 MG/0.3 ML SYRINGE SQ SCH (09:41)
[2018-04-29] MEDS: INSULIN ASPART 100 UNIT/ML 1 ML 10 ML VIAL SQ SCH ×2 (09:44→13:30)
[2018-04-29] MEDS: SODIUM CHLORIDE 0.9% 1,000 ML IV SCH (09:48)
--- NOTE | 2018-04-29 11:13 | P.PN ---
Subjective Progress Note Date: 04/29/18 Principal diagnosis: Status post left total knee arthroplasty Patient seen today resting in her hospital bed, she has family present at bedside. She states that she has ambulated with therapy. She denies any headaches, lightheadedness, chest pain or shortness of breath Objective - Vital Signs Vital signs: Vital Signs Temp 98.5 F 04/29/18 07:25 Pulse 73 04/29/18 07:25 Resp 16 04/29/18 07:25 BP 149/82 04/29/18 07:25 Pulse Ox 96 04/29/18 07:25 Intake & Output 04/28/18 04/29/18 04/29/18 18:59 06:59 18:59 Intake Total 1400 Balance 1400 Weight 98.43 kg Intake: Intake, IV Titration 1100 Amount Sodium Chloride 0.9% 1, 600 000 ml @ 50 mls/hr IV . Q20H [facility] Rx#:[id number] Sodium Chloride 0.9% 500 500 ml @ 999 mls/hr IV .Q31M [facility] Rx#:[id number] Oral 300 Other: Voiding Method Toilet Toilet # Voids 3 1 - Exam Left lower extremity: Incision is clean, dry, and intact. The prineo tape is in good condition. There is minimal soft tissue swelling and ecchymosis surrounding the medial and lateral aspects of the incision. Calf is soft, no tenderness with palpation. Plantar flexion, dorsiflexion, EHL, FHL are intact. Sensory exam to light touch throughout the extremity is intact, dorsal pedis pulses 2+. - Labs CBC & Chem 7: 04/28/18 06:52 04/28/18 06:52 Labs: Abnormal Lab Results - Last 24 Hours (Table) 04/28/18 04/28/18 04/28/18 Range/Units 11:51 16:45 20:00 POC Glucose (mg/dL) 137 H 138 H 251 H (75-99) mg/dL 04/29/18 Range/Units 00:37 POC Glucose (mg/dL) 103 H (75-99) mg/dL Assessment and Plan Plan: Assessment: Post op day #2 status post left total knee arthroplasty Plan: Pain control, continue on oral medication GI and DVT prophylaxis, continue current medication Continue work with physical therapy and use of CPM Wound care instructions were discussed Medical recommendations Discharge planning: Patient will be discharged home today Time with Patient: Less than 30
--- NOTE | 2018-04-29 11:17 | P.DS ---
Providers Date of admission: 04/27/18 09:52 Expected date of discharge: 04/29/18 Attending physician: Link Del Valle Consults: 04/27/18 14:58 Consult Physician Routine Consulting Provider: Natacha Giraldo Consult Reason/Comments: Medical management Do you want consulting provider notified?: Yes 04/27/18 15:23 Consult Physician Routine Consulting Provider: Siddharth Fleming Consult Reason/Comments: medical management Do you want consulting provider notified?: Yes Primary care physician: Natacha Giraldo Hospital Course: Date of admission: 04/27/2018 Date of discharge: 04/29/2018 Admission diagnosis: Status post left total knee arthroplasty Discharge diagnosis: Same Attending physician: Dr. Del Valle Surgical procedures: Left total knee arthroplasty Brief history: Patient is a 77-year-old female with a history of progressive primary left knee arthritis. At this point patient has failed conservative treatment measures and has opted to proceed with a elective left total knee arthroplasty. Hospital course: Details of patient's surgery can be found in operative report. Patient tolerated the procedure well and was subsequently transported to orthopedic floor. Patient's orthopeidc and medical care was provided daily. Patient had daily laboratory tests performed for evaluation of overall blood counts. Patient had daily physical therapy to include strengthening range of motion as well as education with walker ambulation. Patient had daily CPM usage as part of their physical therapy program. Patient was treated with Lovenox for their postoperative DVT prophylaxis during their inpatient stay. Patient was noted to have a relatively uneventful postoperative course. Patient reported satisfactory pain control with oral pain medications by postoperative day 1. Patient showed satisfactory progress with physical therapy. Patient moved steadily through the program and had no difficulty meeting the goals by postoperative day 2. Given patient's otherwise satisfactory course and having met physical therapy goals, plan is to discharge patient [home] on postoperative day 2. Discharge condition/disposition: Patient will be discharged home in stable condition. Discharge medications: Instructions are given on resumption of patient's normal daily medications per primary care recommendation, in addition patient will be prescribed Caruthers 5mg/325, Tramadol 50mg, Aspirin 325mg. Discharge instructions: 1. Wound care and infection precautions, keep incision dry and covered while showering, no lotions, creams, moisturizers. No soaking, tubs, pools, hottubs. Do not scrub over the incision. 2. Weight-bear as tolerated with walker / cane until follow-up. 3. Ice and elevate when necessary. Do not exceed 20 minutes per hour with ice pack. 4. Utilize compression sleeve until seen at first follow up appointment. 5. Visiting nursing care. 6. Home physical therapy including home CPM. 7. Pain meds and anticoagulants per prescription. 8. Pain medication has potential to cause constipation. Increase oral fluid and fiber intake. Contact primary care provider if you have not had a bowel movement within 48 hours after discharge 9. No anti-inflammatory medication until discussed at first post operative visit, this including Motrin, Aleve, Mobic, Diclofenac, Aspirin. 10. Follow up in office at 2 weeks postop with Josse Almanza PA-C 11. Follow up with your primary care doctor 7-10 days after discharge. 12. Contact [facility] with any questions, . Procedures: Left total knee arthroplasty Patient Condition at Discharge: Good Plan - Discharge Summary Discharge Rx Participant: Yes New Discharge Prescriptions: New Aspirin 325 mg PO BID #60 tab Hydrocodone/Acetaminophen [Caruthers 5-325] 1 - 2 each PO Q6HR PRN #56 tab PRN Reason: Pain traMADol HCl [Ultram] 50 mg PO Q6H PRN #28 tab PRN Reason: Pain No Action Folic Acid 0.4 mg PO HS Insulin Glargine [Lantus] 28 unit SQ HS Losartan [Cozaar] 50 mg PO QAM Gabapentin [Neurontin] 400 mg PO BID@0800,1200 Montelukast [Singulair] 10 mg PO HS Magnesium Oxide [Mag-Ox] 500 mg PO HS Fluticasone Propionate [Flonase] 2 spray EA NOSTRIL HS Ubidecarenone [Coq-10] 400 mg PO TID Acetaminophen [Tylenol] 650 mg PO 5XD PRN PRN Reason: Pain Cilostazol 100 mg PO BID Cranberry Conc/C/Bacill Coag [Cranberry Tablet] 4 tab PO QAM Cyanocobalamin [Vitamin B-12] 500 mcg PO QAM Vitamin E (Dl,Tocopheryl Acet) [Vitamin E] 400 mg PO DAILY Cetirizine HCl [Zyrtec] 10 mg PO DAILY L-Carnitine 500 mg PO TID Gabapentin [Neurontin] 800 mg PO HS Super Enzyme 1 cap PO DAILY Pyridoxine HCl (Vitamin B6) [Vitamin B-6] 100 mg PO DAILY Ana C 500 mg PO BID@0800,1200 Discharge Medication List Fluticasone Propionate [Flonase] 2 spray EA NOSTRIL HS 01/21/14 [History] Folic Acid 0.4 mg PO HS 01/21/14 [History] Gabapentin [Neurontin] 400 mg PO BID@0800,1200 01/21/14 [History] Insulin Glargine [Lantus] 28 unit SQ HS 01/21/14 [History] Losartan [Cozaar] 50 mg PO QAM 01/21/14 [History] Magnesium Oxide [Mag-Ox] 500 mg PO HS 01/21/14 [History] Montelukast [Singulair] 10 mg PO HS 01/21/14 [History] Ubidecarenone [Coq-10] 400 mg PO TID 01/21/14 [History] Acetaminophen [Tylenol] 650 mg PO 5XD PRN 03/24/15 [History] Cilostazol 100 mg PO BID 03/24/15 [History] Cranberry Conc/C/Bacill Coag [Cranberry Tablet] 4 tab PO QAM 03/24/15 [History] Cyanocobalamin [Vitamin B-12] 500 mcg PO QAM 03/24/15 [History] Cetirizine HCl [Zyrtec] 10 mg PO DAILY 01/12/16 [History] Vitamin E (Dl,Tocopheryl Acet) [Vitamin E] 400 mg PO DAILY 01/12/16 [History] L-Carnitine 500 mg PO TID 02/15/16 [History] Gabapentin [Neurontin] 800 mg PO HS 03/24/17 [History] Super Enzyme 1 cap PO DAILY 03/24/17 [History] Ana C 500 mg PO BID@0800,1200 04/09/18 [History] Pyridoxine HCl (Vitamin B6) [Vitamin B-6] 100 mg PO DAILY 04/09/18 [History] Aspirin 325 mg PO BID #60 tab 04/29/18 [Rx] Hydrocodone/Acetaminophen [Caruthers 5-325] 1 - 2 each PO Q6HR PRN #56 tab 04/29/18 [Rx] traMADol HCl [Ultram] 50 mg PO Q6H PRN #28 tab 04/29/18 [Rx] Follow up Appointment(s)/Referral(s): [facility], [NON-STAFF] - As Needed Guy Almanza PAC [PHYSICIAN [employer] MECH[employer]IC] - 2 Weeks Activity/Diet/Wound Care/Special Instructions: Orthopedic Discharge Instructions: 1. Wound care and infection precautions, [keep incision dry and covered while showering], no lotions, creams, moisturizers. No soaking, pools, hot tubs. Do not scrub over incision. 2. Weight-bear [as tolerated] with walker / cane until follow-up. 3. Ice and elevate when necessary. Do not exceed 20 minutes per hour with ice pack. 4. Utilize compression sleeve until seen at first follow up appointment. 5. Pain meds and anticoagulants per prescription. 6. Pain medication has potential to cause constipation. Increase oral fluid and fiber intake. Contact primary care provider if you have not had a bowel movement within 48 hours after discharge. 7. No anti-inflammatory medication until discussed at first post operative visit, this including Motrin, Aleve, Mobic, Diclofenac. 8. Follow up in office at 2 weeks postop with Josse Almanza PA-C 9. Follow up with your primary care doctor 7-10 days after discharge. 10. Contact [facility] with any questions, . Discharge Disposition: HOME WITH HOME HEALTH SERVICES
[2018-04-29 11:59] LABS: Glucose,Whole Blood 132 mg/dL (75-99)
[2018-04-29] MEDS: CYANOCOBALAMIN 500 MCG TAB PO SCH (13:30)
== END 2018-04-29 16:55 | disposition home health service (06) | DRG 470 ==
LOC: 2ORMAIN 09:52 → 3SUR 14:49
PROVIDERS: ADMIT Orthopaedic Surgery; ATTEND Orthopaedic Surgery
PROC: 0SRD0J9 Replacement of Left Knee Joint with Synthetic Substitute, Cemented, Open Approach (ICD-10-PCS; principal; 2018-04-27 11:45)
DX: M17.12 Unilateral primary osteoarthritis, left knee (principal); E11.51 Type 2 diabetes mellitus with diabetic peripheral angiopathy without gangrene; E66.9 Obesity, unspecified; E78.5 Hyperlipidemia, unspecified; G71.3 Mitochondrial myopathy, not elsewhere classified; I10 Essential (primary) hypertension; E11.42 Type 2 diabetes mellitus with diabetic polyneuropathy; I83.90 Asymptomatic varicose veins of unspecified lower extremity; J45.909 Unspecified asthma, uncomplicated; L40.9 Psoriasis, unspecified; Z68.35 Body mass index [BMI] 35.0-35.9, adult; Z79.4 Long term (current) use of insulin; Z83.41 Family history of multiple endocrine neoplasia [MEN] syndrome; Z90.710 Acquired absence of both cervix and uterus; Z90.49 Acquired absence of other specified parts of digestive tract; Z98.42 Cataract extraction status, left eye; Z98.41 Cataract extraction status, right eye; Z79.899 Other long term (current) drug therapy; Z87.01 Personal history of pneumonia (recurrent)
CPT/HCPCS: 80048; 83036; 85025; 88300

== ENCOUNTER 2019-02-04 20:10 | Emergency (ER) | payer MEDICARE ==
[2019-02-04] MEDS ORDERED: SODIUM CHLORIDE 0.9% 1,000 ML IV STA ×2 (21:15)
[2019-02-04] MEDS ORDERED: ACETAMINOPHEN TAB 500 MG TAB PO STA (21:15)
[2019-02-04] MEDS ORDERED: IBUPROFEN 600 MG TAB PO STA (21:15)
[2019-02-04] MEDS ORDERED: SODIUM CHLORIDE 0.9% 500 ML 500 ML IV STA (21:15)
--- NOTE | 2019-02-04 21:19 | ED ---
Fever HPI - General Chief Complaint: Fever Stated Complaint: Fever Time Seen by Provider: 02/04/19 21:02 Source: patient, family, RN notes reviewed, old records reviewed Mode of arrival: ambulatory Limitations: no limitations - History of Present Illness Initial Comments: This is an 78-year-old female the ER for evaluation. Patient does say for evaluation regards to fever. Family states patient is a senior she gets septic has a propensity be admitted. No recent travel history no sick contacts no cough or congestion. No bowel pain nausea vomiting or diarrhea. MD Complaint: fever, weakness -: hour(s) Temperature Source: subjective Context: sick contacts, multiple patients with similar symptoms Associated Symptoms: chest pain, shortness of breath Treatments Prior to Arrival: none - Related Data Home Medications Medication Instructions Recorded Confirmed Fluticasone Propionate [Flonase] 2 spray EA NOSTRIL HS 01/21/14 02/04/19 Folic Acid 0.4 mg PO 01/21/14 02/04/19 Gabapentin [Neurontin] 400 mg PO BID@0800,1200 01/21/14 02/04/19 Losartan [Cozaar] 50 mg PO QAM 01/21/14 02/04/19 Magnesium Oxide [Mag-Ox] 500 mg PO HS 01/21/14 02/04/19 Montelukast [Singulair] 10 mg PO HS 01/21/14 02/04/19 Ubidecarenone [Coq-10] 400 mg PO TID 01/21/14 02/04/19 Cilostazol [Pletal] 100 mg PO BID 03/24/15 02/04/19 Cranberry Conc/C/Bacill Coag 4 tab PO QAM 03/24/15 02/04/19 [Cranberry Tablet] Cyanocobalamin [Vitamin B-12] 500 mcg PO QAM 03/24/15 02/04/19 Cetirizine HCl [Zyrtec] 10 mg PO DAILY 01/12/16 02/04/19 Vitamin E (Dl,Tocopheryl Acet) 400 mg PO DAILY 01/12/16 02/04/19 [Vitamin E] L-Carnitine 500 mg PO TID 02/15/16 02/04/19 Gabapentin [Neurontin] 800 mg PO HS 03/24/17 02/04/19 Super Enzyme 1 cap PO DAILY 03/24/17 02/04/19 Ana C 500 mg PO BID@0800,1200 04/09/18 02/04/19 Pyridoxine HCl (Vitamin B6) 100 mg PO DAILY 04/09/18 02/04/19 [Vitamin B-6] Insulin Glargine [Lantus] 25 units SQ HS 02/04/19 02/04/19 Previous Rx's Medication Instructions Recorded Nitrofurantoin Monohyd/M-Cryst 100 mg PO Q12HR #10 cap 02/04/19 [Macrobid] Allergies Allergy/AdvReac Type Severity Reaction Status Date / Time clarithromycin [From Biaxin] Allergy Unknown Verified 02/04/19 23:12 perfume AdvReac headache Verified 02/04/19 23:12 Review of Systems ROS Statement: Those systems with pertinent positive or pertinent negative responses have been documented in the HPI. ROS Other: All systems not noted in ROS Statement are negative. Past Medical History Past Medical History: Asthma, Diabetes Mellitus, Hyperlipidemia, Hypertension, Osteoarthritis (OA), Pneumonia, Skin Disorder Additional Past Medical History / Comment(s): hx VARICOSE VEINS, DIVERTICULITIS, PSORIASIS, DIABETIC NEUROPATHY, MITACHONDRIAL MYOPATHY, bowel resection for precancerous lesion,steroid injection February 2018 History of Any Multi-Drug Resistant Organisms: None Reported Past Surgical History: Appendectomy, Bladder Surgery, Bowel Resection, Cholecystectomy, Hysterectomy, Joint Replacement, Tonsillectomy Additional Past Surgical History / Comment(s): DEVIATED SEPTUM, LEFT LEG VARICOSE LEG SX, MUSCLE BX LEFT LEG x2, howard cataracts, oral surgery-dental implants howard lower,bladder susp Past Anesthesia/Blood Transfusion Reactions: No Reported Reaction Additional Past Anesthesia/Blood Transfusion Reaction / Comment(s): no hx blood transfusion Past Psychological History: No Psychological Hx Reported Smoking Status: Never smoker Past Alcohol Use History: None Reported Past Drug Use History: None Reported - Past Family History Father Family Medical History: Cancer Additional Family Medical History / Comment(s): COLON Mother Family Medical History: Cancer Additional Family Medical History / Comment(s): BREAST Sister(s) Additional Family Medical History / Comment(s): MEN1 TUMORS Brother(s) Additional Family Medical History / Comment(s): MEN1 TUMORS General Exam Limitations: no limitations General appearance: alert, in no apparent distress Head exam: Present: atraumatic, normocephalic, normal inspection Eye exam: Present: normal appearance, PERRL, EOMI. Absent: scleral icterus, conjunctival injection, periorbital swelling ENT exam: Present: normal exam, mucous membranes moist Neck exam: Present: normal inspection. Absent: tenderness, meningismus, lymphadenopathy Respiratory exam: Present: normal lung sounds bilaterally. Absent: respiratory distress, wheezes, rales, rhonchi, stridor Cardiovascular Exam: Present: normal rhythm, tachycardia, normal heart sounds. Absent: systolic murmur, diastolic murmur, rubs, gallop, clicks GI/Abdominal exam: Present: soft, normal bowel sounds. Absent: distended, tenderness, guarding, rebound, rigid Extremities exam: Present: normal inspection, full ROM, normal capillary refill. Absent: tenderness, pedal edema, joint swelling, calf tenderness Back exam: Present: normal inspection Neurological exam: Present: alert, oriented X3, CN II-XII intact Psychiatric exam: Present: normal affect, normal mood Skin exam: Present: warm, dry, intact, normal color. Absent: rash Course Vital Signs 02/04/19 02/04/19 02/04/19 20:27 22:18 23:50 Temperature 101.3 F H 98.5 F Pulse Rate 108 H 81 Respiratory 20 16 16 Rate Blood Pressure 166/81 170/74 O2 Sat by Pulse 95 94 L Oximetry 02/05/19 00:43 Temperature 98.2 F Pulse Rate 79 Respiratory 16 Rate Blood Pressure 140/57 O2 Sat by Pulse 94 L Oximetry - Reevaluation(s) Reevaluation #1: Medical record is reviewed Patient feeling improved with hydration and fever control Medical Decision Making - Medical Decision Making 78 female the ER with history of urinary check infections and fever. Presented with same today. Patient has UTI and fever. Patient is not want to be admitted will discharge home on antibiotics - Lab Data Result diagrams: 02/04/19 21:06 02/04/19 21:06 Lab Results 02/04/19 02/04/19 02/04/19 Range/Units 21:06 21:06 21:06 WBC 9.1 (3.8-10.6) k/uL RBC 3.83 (3.80-5.40) m/uL Hgb 12.1 (11.4-16.0) gm/dL Hct 36.1 (34.0-46.0) % MCV 94.4 (80.0-100.0) fL MCH 31.6 (25.0-35.0) pg MCHC 33.5 (31.0-37.0) g/dL RDW 12.8 (11.5-15.5) % Plt Count 194 (150-450) k/uL Neutrophils % 86 % Lymphocytes % 8 % Monocytes % 4 % Eosinophils % 2 % Basophils % 0 % Neutrophils # 7.8 H (1.3-7.7) k/uL Lymphocytes # 0.7 L (1.0-4.8) k/uL Monocytes # 0.3 (0-1.0) k/uL Eosinophils # 0.2 (0-0.7) k/uL Basophils # 0.0 (0-0.2) k/uL Sodium 138 (137-145) mmol/L Potassium 3.8 (3.5-5.1) mmol/L Chloride 106 (98-107) mmol/L Carbon Dioxide 24 (22-30) mmol/L Anion Gap 8 mmol/L BUN 22 H (7-17) mg/dL Creatinine 0.85 (0.52-1.04) mg/dL Est GFR (CKD-EPI)AfAm 75 (>60 ml/min/1.73 sqM) Est GFR (CKD-EPI)NonAf 65 (>60 ml/min/1.73 sqM) Glucose 204 H (74-99) mg/dL Plasma Lactic Acid Jaren 1.7 (0.7-2.0) mmol/L Calcium 8.8 (8.4-10.2) mg/dL Phosphorus 2.8 (2.5-4.5) mg/dL Magnesium 1.8 (1.6-2.3) mg/dL Total Bilirubin 0.6 (0.2-1.3) mg/dL AST 30 (14-36) U/L ALT 27 (9-52) U/L Alkaline Phosphatase 72 (38-126) U/L Total Protein 6.8 (6.3-8.2) g/dL Albumin 4.0 (3.5-5.0) g/dL Urine Color Urine Appearance (Clear) Urine pH (5.0-8.0) Ur Specific [place] (1.001-1.035) Urine Protein (Negative) Urine Glucose (UA) (Negative) Urine Ketones (Negative) Urine Blood (Negative) Urine Nitrite (Negative) Urine Bilirubin (Negative) Urine Urobilinogen (<2.0) mg/dL Ur Leukocyte Esterase (Negative) Urine RBC (0-5) /hpf Urine WBC (0-5) /hpf Urine Bacteria (None) /hpf Urine Mucus (None) /hpf 02/04/19 Range/Units 21:06 WBC (3.8-10.6) k/uL RBC (3.80-5.40) m/uL Hgb (11.4-16.0) gm/dL Hct (34.0-46.0) % MCV (80.0-100.0) fL MCH (25.0-35.0) pg MCHC (31.0-37.0) g/dL RDW (11.5-15.5) % Plt Count (150-450) k/uL Neutrophils % % Lymphocytes % % Monocytes % % Eosinophils % % Basophils % % Neutrophils # (1.3-7.7) k/uL Lymphocytes # (1.0-4.8) k/uL Monocytes # (0-1.0) k/uL Eosinophils # (0-0.7) k/uL Basophils # (0-0.2) k/uL Sodium (137-145) mmol/L Potassium (3.5-5.1) mmol/L Chloride (98-107) mmol/L Carbon Dioxide (22-30) mmol/L Anion Gap mmol/L BUN (7-17) mg/dL Creatinine (0.52-1.04) mg/dL Est GFR (CKD-EPI)AfAm (>60 ml/min/1.73 sqM) Est GFR (CKD-EPI)NonAf (>60 ml/min/1.73 sqM) Glucose (74-99) mg/dL Plasma Lactic Acid Jaren (0.7-2.0) mmol/L Calcium (8.4-10.2) mg/dL Phosphorus (2.5-4.5) mg/dL Magnesium (1.6-2.3) mg/dL Total Bilirubin (0.2-1.3) mg/dL AST (14-36) U/L ALT (9-52) U/L Alkaline Phosphatase (38-126) U/L Total Protein (6.3-8.2) g/dL Albumin (3.5-5.0) g/dL Urine Color Light Yellow Urine Appearance Clear (Clear) Urine pH 6.5 (5.0-8.0) Ur Specific [place] 1.016 (1.001-1.035) Urine Protein Negative (Negative) Urine Glucose (UA) Negative (Negative) Urine Ketones Negative (Negative) Urine Blood Negative (Negative) Urine Nitrite Positive H (Negative) Urine Bilirubin Negative (Negative) Urine Urobilinogen <2.0 (<2.0) mg/dL Ur Leukocyte Esterase Small H (Negative) Urine RBC 1 (0-5) /hpf Urine WBC 17 H (0-5) /hpf Urine Bacteria Occasional H (None) /hpf Urine Mucus Rare H (None) /hpf - Radiology Data Radiology results: report reviewed (Chest x-rays negative for acute disease), image reviewed Disposition Clinical Impression: Acute urinary tract infection, Fever Disposition: HOME SELF-CARE Condition: Fair Prescriptions: Nitrofurantoin Monohyd/M-Cryst [Macrobid] 100 mg PO Q12HR #10 cap Is patient prescribed a controlled substance at d/c from ED?: No Referrals: Natacha Giraldo DO [Primary Care Provider] - 1-2 days
[2019-02-04 21:46] LABS: Appearance,Urine Clear (Clear); Bacteria,Urine Occasional /hpf; Bilirubin,Urine Negative (Negative); Blood,Urine Negative (Negative); Color,Urine Light Yellow; Glucose,Urine (UA) Negative (Negative); Ketones,Urine Negative (Negative); Leukocyte Esterase,Urine Small (Negative); Mucus,Urine Rare /hpf; Nitrite,Urine Positive (Negative); PH, Urine 6.5 (5.0-8.0); Protein,Urine Negative (Negative); RBC,Urine 1 /hpf (0-5); Specific Gravity,Urine 1.016 (1.001-1.035); Urobilinogen,Urine <2.0 mg/dL (<2.0); WBC,Urine 17 /hpf (0-5)
[2019-02-04 21:47] LABS: Basophils % (A) 0 %; Eosinophils # (A) 0.2 k/uL (0-0.7); Eosinophils % (A) 2 %; HCT 36.1 % (34.0-46.0); HGB 12.1 gm/dL (11.4-16.0); Lymphocytes # (A) 0.7 k/uL (1.0-4.8); Lymphocytes % (A) 8 %; MCH 31.6 pg (25.0-35.0); MCHC 33.5 g/dL (31.0-37.0); MCV 94.4 fL (80.0-100.0); Mean Platelet Volume 7.3; Monocytes # (A) 0.3 k/uL (0-1.0); Monocytes % (A) 4 %; Neutrophils # (A) 7.8 k/uL (1.3-7.7); Neutrophils % (A) 86 %; Platelet Count 194 k/uL (150-450); RBC 3.83 m/uL (3.80-5.40); RDW 12.8 % (11.5-15.5); WBC 9.1 k/uL (3.8-10.6)
[2019-02-04 21:57] LABS: Calcium 8.8 mg/dL (8.4-10.2); Magnesium 1.8 mg/dL (1.6-2.3); Phosphorus 2.8 mg/dL (2.5-4.5); Potassium 3.8 mmol/L (3.5-5.1); Total Bilirubin 0.6 mg/dL (0.2-1.3); Total Protein 6.8 g/dL (6.3-8.2)
[2019-02-04 22:19] VITALS: RESP 16
[2019-02-04] MEDS ORDERED: SODIUM CHLORIDE 0.9% 1,000 ML IV ONE (22:51)
--- NOTE | 2019-02-04 22:55 | XR ---
EXAM: XR Chest, 2 Views CLINICAL HISTORY: ITS.REASON XR Reason: cough TECHNIQUE: Frontal and lateral views of the chest. COMPARISON: Chest radiograph on 07/02/2017 FINDINGS: Hardware: None. Lungs/pleura: Bibasilar opacities may represent atelectasis versus pneumonia. Mild elevation of the right hemidiaphragm. Interstitial opacities may represent chronic lung changes versus pulmonary vasculature congestion versus infectious/inflammatory process. No pleural effusion or pneumothorax. Heart/mediastinum: Mild enlargement of the cardiac silhouette. Atherosclerotic calcifications in the aorta. Soft tissues: Unremarkable. Bones: No acute fracture. Degenerative changes of the acromioclavicular joints and spine. Upper abdomen: Normal. IMPRESSION: Bibasilar opacities may represent atelectasis versus pneumonia. Interstitial opacities may represent chronic lung changes versus pulmonary vasculature congestion versus infectious/inflammatory process.
[2019-02-05 00:45] VITALS: BP 140/57; PULSE 79; TEMP 98.2
[2019-02-05] MEDS ORDERED: ENOXAPARIN 40 MG/0.4 ML SYRINGE SQ SCH (09:00)
== END 2019-02-05 00:45 | disposition home or self-care (01) ==
LOC: EC 20:10 → UNDOADMOB 22:53 → 4MS4W 22:53 → EC 02-05 00:45
DX: N39.0 Urinary tract infection, site not specified (principal); R00.0 Tachycardia, unspecified; R07.9 Chest pain, unspecified; R06.02 Shortness of breath; R53.1 Weakness; J45.909 Unspecified asthma, uncomplicated; E11.40 Type 2 diabetes mellitus with diabetic neuropathy, unspecified; I10 Essential (primary) hypertension; Z88.1 Allergy status to other antibiotic agents; Z91.048 Other nonmedicinal substance allergy status; Z79.4 Long term (current) use of insulin; Z79.51 Long term (current) use of inhaled steroids; Z79.899 Other long term (current) drug therapy; Z87.01 Personal history of pneumonia (recurrent)
CPT/HCPCS: 36415; 80053; 83605; 83735; 84100; 85025; 81001; 87040; 87086; 87077; 87186; 71046; 99284; 96365; 96361; J0696

== ENCOUNTER 2019-08-05 06:22 | Day surgery (SDC) | payer MEDICARE ==
[2019-08-03 11:23] VITALS: BMI 37.1
[~2019-08-05 06:22] MED LIST changes: -ACETAMINOPHEN TAB 500 MG TAB PO ONE; -HYDROmorphone 0.5 MG/0.5 ML SYRINGE IVP PRN; +LACTATED RINGERS 1,000 ML IV SCH; -MELOXICAM 7.5 MG TAB PO ONE; -TRANEXAMIC ACID 1,000 MG in SODIUM CHLORIDE 0.9% 50 ML IVPB ONE; -ceFAZolin IN SWFI 2 GM/20 ML SYRINGE IVP ONE
[2019-08-05 06:53] VITALS: TEMP 97.3
[2019-08-05] MEDS ORDERED: LIDOCAINE 1% 20 ML VIAL (10MG/ML) FOR IV START INTRADERMA ONE (06:54)
[2019-08-05 06:57] LABS: Glucose,Whole Blood 171 mg/dL (75-99)
[2019-08-05] MEDS ORDERED: LIDOCAINE 1% INJ 10MG/ML (20 ML MDV) ONE (07:04)
[2019-08-05] MEDS ORDERED: PROPOFOL 10 MG/ML 20 ML VIAL IV ONE (07:04)
--- NOTE | 2019-08-05 07:07 | P.GSHP ---
History of Present Illness H&P Date: 08/05/19 CHIEF COMPLAINT: GERD and colon screen HISTORY OF PRESENT ILLNESS: The patient is a 78-year-old male who presents with gastroesophageal reflux disease and need for colon screen. Upper and lower endoscopy were offered for further evaluation and management. PAST MEDICAL HISTORY: Please see list. PAST SURGICAL HISTORY: Please see list. MEDICATIONS: Please see list. ALLERGIES: Please see list. SOCIAL HISTORY: No illicit drug use FAMILY HISTORY: No reports of Crohn disease or ulcerative colitis. REVIEW OF ORGAN SYSTEMS: CONSTITUTIONAL: No reports of fevers or chills. GI: Denies any blood in stools or constipation. PHYSICAL EXAM: VITAL SIGNS: Stable GENERAL: Well-developed pleasant in no acute distress. HEENT: No scleral icterus. Extraocular movements grossly intact. Moist buccal mucosa. NECK: Supple without lymphadenopathy. CHEST: Unlabored respirations. Equal bilateral excursions. CARDIOVASCULAR: Regular rate and rhythm. Distal 2+ pulses. ABDOMEN: Soft, nondistended. MUSCULOSKELETAL: No clubbing, cyanosis, or edema. ASSESSMENT: 1. Gastroesophageal reflux disease 2. Colon screen. PLAN: 1. Recommend proceeding with an upper and lower endoscopy Past Medical History Past Medical History: Asthma, Diabetes Mellitus, GERD/Reflux, Hyperlipidemia, Hypertension, Osteoarthritis (OA), Pneumonia, Skin Disorder Additional Past Medical History / Comment(s): VARICOSE VEINS, DIVERTICULITIS, PSORIASIS, DIABETIC NEUROPATHY, MITACHONDRIAL MYOPATHY, bowel resection for precancerous lesion History of Any Multi-Drug Resistant Organisms: None Reported Past Surgical History: Appendectomy, Bladder Surgery, Bowel Resection, Cholecystectomy, Hysterectomy, Joint Replacement, Tonsillectomy Additional Past Surgical History / Comment(s): DEVIATED SEPTUM, LEFT LEG VARICOSE LEG SX, MUSCLE BX LEFT LEG x2, howard cataracts, oral surgery-dental implants howard lower,bladder susp, left knee replacement Past Anesthesia/Blood Transfusion Reactions: Previous Problems w/ Anesthesia Additional Past Anesthesia/Blood Transfusion Reaction / Comment(s): no hx blood transfusion, "I wake up easy- I wake up and they need to give me some more" Smoking Status: Never smoker - Past Family History Father Family Medical History: Cancer Additional Family Medical History / Comment(s): COLON Mother Family Medical History: Cancer Additional Family Medical History / Comment(s): BREAST Sister(s) Additional Family Medical History / Comment(s): MEN1 TUMORS Brother(s) Additional Family Medical History / Comment(s): MEN1 TUMORS Medications and Allergies Home Medications Medication Instructions Recorded Confirmed Type Fluticasone Propionate [Flonase] 2 spray EA NOSTRIL HS 01/21/14 08/05/19 History Folic Acid 0.4 mg PO HS 01/21/14 08/05/19 History Gabapentin [Neurontin] 400 mg PO QID 01/21/14 08/05/19 History Losartan [Cozaar] 50 mg PO QAM 01/21/14 08/05/19 History Magnesium Oxide [Mag-Ox] 500 mg PO HS 01/21/14 08/05/19 History Montelukast [Singulair] 10 mg PO HS 01/21/14 08/05/19 History Ubidecarenone [Coq-10] 200 mg PO TID 01/21/14 08/05/19 History Cilostazol [Pletal] 100 mg PO BID 03/24/15 08/03/19 History Cranberry Conc/C/Bacill Coag 4 tab PO QAM 03/24/15 08/05/19 History [Cranberry Tablet] Cyanocobalamin [Vitamin B-12] 500 mcg PO QAM 03/24/15 08/05/19 History Cetirizine HCl [Zyrtec] 10 mg PO DAILY 01/12/16 08/05/19 History Vitamin E (Dl,Tocopheryl Acet) 400 mg PO DAILY 01/12/16 08/03/19 History [Vitamin E] L-Carnitine 500 mg PO TID 02/15/16 08/05/19 History Super Enzyme 1 cap PO DAILY 03/24/17 08/05/19 History Ana C 500 mg PO BID@0800,1200 04/09/18 08/05/19 History Pyridoxine HCl (Vitamin B6) 100 mg PO DAILY 04/09/18 08/05/19 History [Vitamin B-6] Insulin Glargine [Lantus] 34 units SQ HS 02/04/19 08/05/19 History Allergies Allergy/AdvReac Type Severity Reaction Status Date / Time clarithromycin [From Biaxin] Allergy Unknown Verified 08/05/19 06:48 perfume AdvReac headache Verified 08/05/19 06:48 Surgical - Exam Vital Signs Temp Pulse Resp BP Pulse Ox 97.3 F L 83 17 125/70 97 08/05/19 06:51 08/05/19 06:51 08/05/19 06:51 08/05/19 06:51 08/05/19 06:51 Results - Labs Abnormal Lab Results - Last 24 Hours (Table) 08/05/19 Range/Units 06:53 POC Glucose (mg/dL) 171 H (75-99) mg/dL
--- NOTE | 2019-08-05 07:22 | P.PCN ---
Date of Procedure: 08/05/19 Description of Procedure: PREOPERATIVE DIAGNOSIS: Gastroesophageal reflux disease. Morbid obesity. POSTOPERATIVE DIAGNOSIS: Morbid obesity. Gastritis. Gastroesophageal reflux disease. Diaphragmatic hiatal hernia OPERATION: Esophagogastroduodenoscopy with biopsies along antrum. SURGEON: Lisha Martinez MD ANESTHESIA: MAC. INDICATIONS: The patient is a 78-year-old female who presents with a history of reflux disease. Benefits and risks of the procedure were described. Informed consent was obtained. DESCRIPTION: The patient was brought into the endoscopy suite and laid in the left lateral decubitus position. An Olympus gastroscope was passed along the posterior oropharynx down to the distal esophagus where the squamocolumnar junction was encountered at 38 cm from the incisors. The stomach was entered and no bile reflux was found. Additional findings are listed below. Biopsies with cold f orceps were obtained of the antrum. The first through third portion of the duodenum was examined and unremarkable. Retroflexion of the scope confirmed Hill grade 4 lower esophageal valve. The squamocolumnar junction demonstrated LA grade B erosive esophagitis. The stomach was desufflated. The patient tolerated the procedure well. FINDINGS: Squamocolumnar junction 34 cm from the incisors. Diaphragmatic hiatus at 38 cm. Hiatal hernia, 4 cm Hill grade 4 lower esophageal valve. LA grade B erosive esophagitis. No active duodenitis. Chronic gastritis without recent bleed RECOMMENDATIONS: Upper endoscopy as needed.
--- NOTE | 2019-08-05 07:40 | P.PCN ---
Date of Procedure: 08/05/19 Description of Procedure: PREOPERATIVE DIAGNOSIS: Personal history of malignant colon polyp Colonoscopy screening History of partial colectomy POSTOPERATIVE DIAGNOSIS: Personal history of malignant colon polyp Colonoscopy screening History of partial colectomy Severe sigmoid diverticulosis External hemorrhoids, grade 3. OPERATION: Colonoscopy to the ileocolic anastomosis Colonoscopy with cold forceps biopsies. SURGEON: Lisha Martinez MD. ANESTHESIA: MAC. INDICATIONS: The patient is a 78-year-old female who presents for colonoscopy screening. she has history of malignant colon polyp and partial resection. Last colonoscopy 5 years ago. Benefits and risks were described and informed consent was obtained. DESCRIPTION OF PROCEDURE: The patient had undergone Gatorade, MiraLAX and Dulcolax prep. She had been brought into the operating room and laid in the left lateral decubitus position. After adequate intravenous sedation, the rectum was examined with 2% lidocaine jelly. External hemorrhoids were encountered. The rectal tone was within normal limits. No lesions were palpated in the rectal vault. An Olympus colonoscope was advanced until the ileocolic anastomosis was viewed. The prep was fair with visualization of the mucosal folds. Severe sigmoid diverticulosis was enc ountered. Colon polyp at 30 cm was cold forceps biopsy to completion.. No evidence of focal colitis was found. Retroflexion of the scope demonstrated grade 2 internal hemorrhoids without active bleeding or inflammation. The colon was desufflated. The patient had tolerated the procedure well. Withdrawal time was over 6 minutes. FINDINGS: Aronchick preparation quality scale 2 (1-5) Internal hemorrhoids, grade 2 External hemorrhoids, grade 2. No arteriovenous malformations. Severe sigmoid diverticulosis with redundancy Removal of 1 polyp: - Cold forceps biopsy at 30 cm from the anal verge, 4 mm polyp, sigmoid colon No focal colitis. RECOMMENDATIONS: Lower endoscopy as needed Plan - Discharge Summary Discharge Rx Participant: No New Discharge Prescriptions: No Action Folic Acid 0.4 mg PO HS Losartan [Cozaar] 50 mg PO QAM Gabapentin [Neurontin] 400 mg PO QID Montelukast [Singulair] 10 mg PO HS Magnesium Oxide [Mag-Ox] 500 mg PO HS Fluticasone Propionate [Flonase] 2 spray EA NOSTRIL HS Ubidecarenone [Coq-10] 200 mg PO TID Cilostazol [Pletal] 100 mg PO BID Cranberry Conc/C/Bacill Coag [Cranberry Tablet] 4 tab PO QAM Cyanocobalamin [Vitamin B-12] 500 mcg PO QAM Vitamin E (Dl,Tocopheryl Acet) [Vitamin E] 400 mg PO DAILY Cetirizine HCl [Zyrtec] 10 mg PO DAILY L-Carnitine 500 mg PO TID Super Enzyme 1 cap PO DAILY Pyridoxine HCl (Vitamin B6) [Vitamin B-6] 100 mg PO DAILY Ana C 500 mg PO BID@0800,1200 Insulin Glargine [Lantus] 34 units SQ HS Discharge Medication List Fluticasone Propionate [Flonase] 2 spray EA NOSTRIL HS 01/21/14 [History] Folic Acid 0.4 mg PO HS 01/21/14 [History] Gabapentin [Neurontin] 400 mg PO QID 01/21/14 [History] Losartan [Cozaar] 50 mg PO QAM 01/21/14 [History] Magnesium Oxide [Mag-Ox] 500 mg PO HS 01/21/14 [History] Montelukast [Singulair] 10 mg PO HS 01/21/14 [History] Ubidecarenone [Coq-10] 200 mg PO TID 01/21/14 [History] Cilostazol [Pletal] 100 mg PO BID 03/24/15 [History] Cranberry Conc/C/Bacill Coag [Cranberry Tablet] 4 tab PO QAM 03/24/15 [History] Cyanocobalamin [Vitamin B-12] 500 mcg PO QAM 03/24/15 [History] Cetirizine HCl [Zyrtec] 10 mg PO DAILY 01/12/16 [History] Vitamin E (Dl,Tocopheryl Acet) [Vitamin E] 400 mg PO DAILY 01/12/16 [History] L-Carnitine 500 mg PO TID 02/15/16 [History] Super Enzyme 1 cap PO DAILY 03/24/17 [History] Ana C 500 mg PO BID@0800,1200 04/09/18 [History] Pyridoxine HCl (Vitamin B6) [Vitamin B-6] 100 mg PO DAILY 04/09/18 [History] Insulin Glargine [Lantus] 34 units SQ HS 02/04/19 [History] Follow up Appointment(s)/Referral(s): Lisha Martinez MD [STAFF PHYSICIAN] - 08/17/19 Patient Instructions/Handouts: Diverticulosis Diet (GEN), Diverticulosis (ED), Colorectal Polyps (GEN) Activity/Diet/Wound Care/Special Instructions: Repeat colonoscopy as needed Discharge Disposition: HOME SELF-CARE
[2019-08-05 07:43] VITALS: RESP 16
[2019-08-05 07:44] LABS: Glucose,Whole Blood 182 mg/dL (75-99)
[2019-08-05 07:56] VITALS: BP 119/68; PULSE 62
== END 2019-08-05 08:27 | disposition home or self-care (01) ==
LOC: ORWHC2ENDO 06:22
PROVIDERS: ATTEND Surgery Plastic and Reconstructive Surgery
DX: Z12.11 Encounter for screening for malignant neoplasm of colon (principal); K29.50 Unspecified chronic gastritis without bleeding; K22.10 Ulcer of esophagus without bleeding; K57.30 Diverticulosis of large intestine without perforation or abscess without bleeding; K63.5 Polyp of colon; K44.9 Diaphragmatic hernia without obstruction or gangrene; K21.0 Gastro-esophageal reflux disease with esophagitis; K64.1 Second degree hemorrhoids; Z85.038 Personal history of other malignant neoplasm of large intestine; Z90.49 Acquired absence of other specified parts of digestive tract; E11.40 Type 2 diabetes mellitus with diabetic neuropathy, unspecified; R13.10 Dysphagia, unspecified; J45.909 Unspecified asthma, uncomplicated; K21.9 Gastro-esophageal reflux disease without esophagitis; E78.5 Hyperlipidemia, unspecified; I10 Essential (primary) hypertension; M19.90 Unspecified osteoarthritis, unspecified site; Z87.01 Personal history of pneumonia (recurrent); I83.90 Asymptomatic varicose veins of unspecified lower extremity; L40.9 Psoriasis, unspecified; G71.3 Mitochondrial myopathy, not elsewhere classified; Z90.710 Acquired absence of both cervix and uterus; Z98.42 Cataract extraction status, left eye; Z98.41 Cataract extraction status, right eye; Z96.652 Presence of left artificial knee joint; Z80.0 Family history of malignant neoplasm of digestive organs; Z80.3 Family history of malignant neoplasm of breast; Z80.8 Family history of malignant neoplasm of other organs or systems; Z79.02 Long term (current) use of antithrombotics/antiplatelets; Z79.4 Long term (current) use of insulin; Z79.899 Other long term (current) drug therapy; Z88.1 Allergy status to other antibiotic agents; Z91.048 Other nonmedicinal substance allergy status; E66.01 Morbid (severe) obesity due to excess calories; Z68.37 Body mass index [BMI] 37.0-37.9, adult
CPT/HCPCS: 88305; 45380; 43239; J2001; J2704

== ENCOUNTER → 2020-06-30 | Outpatient (CLI) | payer MEDICARE ==
--- NOTE | 2020-06-30 14:20 | FL ---
Fluoroscopy INDICATION: Dysphagia FINDINGS: Fluoroscopy time: 33 seconds. Images obtained: 42. Esophagus appears slightly patulous. No intraluminal defects are evident. A few tertiary contractions are evident during this exam within the esophagus. There is complete stripping the esophageal bolus the horizontal drinking position. Schatzki's ring is above the diaphragm. A small hiatal hernia is present. The gastroesophageal juncti on above the hiatal hernia has some narrowing in relation to the distal esophagus. Some mild stenosis may be present. IMPRESSIONS: 1. Mild presbyesophagus. 2. Hiatal hernia. 3. Some mild stenosis in relation to the slightly patulous esophagus is present at the hiatal hernia.
== END | disposition home or self-care (01) ==
LOC: RADUSWWP 09:50
PROVIDERS: ATTEND Surgery Plastic and Reconstructive Surgery
DX: K22.8 Other specified diseases of esophagus (principal); K44.9 Diaphragmatic hernia without obstruction or gangrene; K22.2 Esophageal obstruction
CPT/HCPCS: 74220

== ENCOUNTER → 2020-07-07 | Outpatient (CLI) | payer MEDICARE ==
--- NOTE | 2020-07-07 12:16 | XR ---
EXAMINATION TYPE: XR chest 2V DATE OF EXAM: 07/07/2020 CLINICAL HISTORY: CHF I50.9. TECHNIQUE: Frontal and lateral view of the chest. COMPARISON: 02/04/2019 and 07/02/2017 chest radiographs FINDINGS: The cardiomediastinal silhouette is within normal limits for size. Pulmonary vasculature i s normal. Redemonstrated left basilar subsegmental atelectasis versus scarring unchanged versus 2017 comparison. There is no focal air space opacity, pleural effusion, or pneumothorax seen. The osseous structures are intact. IMPRESSION: No acute cardiopulmonary process.
== END | disposition home or self-care (01) ==
LOC: RADXRMAIN 09:24
PROVIDERS: ATTEND Surgery Plastic and Reconstructive Surgery
DX: I50.9 Heart failure, unspecified (principal); Z88.1 Allergy status to other antibiotic agents
CPT/HCPCS: 71046